=== PATIENT | female | born 1955 | race Caucasian/White ===

== ENCOUNTER 2016-06-21 09:34 | Day surgery (SDC) | payer OTHER ==
--- NOTE | ~2016-06-21 | EGD ---
EGD REPORT [facility] [address] [place] [address] NAME: ITZEL MAHER : [birth year] STATUS : REG [facility]#: [id number] AGE: 60 ADM/REG DATE : 06/21/16 MR#: [id number] REPORT SERV DATE: 06/21/16 DICTATED BY: NATALIE WARD DATE: 06/21/16 REPORT STATUS : Draft TRANSCRIBED BY: [employer] DATE: 06/21/16 [facility] Center Patient Name: Sis Maher Date of : 1955 Attending MD: NATALIE WARD, Procedure Date No Time: 06/21/2016 Procedure: Small bowel enteroscopy Indications: Abnormal abdominal CT Referring MD: Aquiles King Medicines: Monitored Anesthesia Care Complications: No immediate complications. Estimated blood loss: None. Procedure: Pre-Anesthesia Assessment: - ASA Grade Assessment: II - A patient with mild systemic disease. After obtaining informed consent, the endoscope was passed under direct vision. Throughout the procedure, the patient's blood pressure, pulse, and oxygen saturations were monitored continuously. The SIF Q180 [id number] was introduced through the mouth and advanced to the third part of duodenum. Due to the anatomy and excessive looping this was exchanged for a pediatic colonoscope. The PCF H190L [id number] was introduced through the mouth and advanced to the proximal jejunum. Findings: The esophagus was normal. The stomach was normal. The examined duodenum was normal. There was no evidence of significant pathology in the proximal jejunum and in the mid-jejunum. Biopsies were taken with a cold forceps for histology. Verification of patient identification for the specimen was done. Estimated blood loss was minimal. Impression: - Normal esophagus. - Normal stomach. - Normal examined duodenum. - The examined portion of the jejunum was normal. Biopsied. Recommendation: - Return to previous diet. - Continue present medications. - Perform a small bowel follow through. Procedure Code(s): --- Professional --- 46167, Small intestinal endoscopy, enteroscopy beyond EGD REPORT [facility] [address] [place]. [address] NAME: ITZEL MAHER : [birth year] STATUS : REG [facility] [place]#: [id number] AGE: 60 ADM/REG DATE : 06/21/16 MR#: [id number] REPORT SERV DATE: 06/21/16 DICTATED BY: NATALIE WARD DATE: 06/21/16 REPORT STATUS : Draft TRANSCRIBED BY: [employer] DATE: 06/21/16 second portion of duodenum, not including ileum; with biopsy, single or multiple Diagnosis Code(s): --- Professional --- R93.3, Abnormal findings on diagnostic imaging of other parts of digestive tract CPT copyright 2013 [employer]. All rights reserved. The codes documented in this report are preliminary and upon computed tomography technician review may be revised to meet current compliance requirements. NATALIE WARD, 06/21/2016 12:32 PM Number of Addenda: 0 Note Initiated On: 06/21/2016 11:45 AM Scope Withdrawal Time 0 hours 0 minutes 0 seconds [address] [place] [address]
--- NOTE | ~2016-06-21 | EGD ---
EGD REPORT [facility] [address] [place] [address] NAME: ITZEL MAHER : [birth year] STATUS : REG [facility]#: [id number] AGE: 60 ADM/REG DATE : 06/21/16 MR#: [id number] REPORT SERV DATE: 06/21/16 DICTATED BY: NATALIE WARD DATE: 06/21/16 REPORT STATUS : Draft TRANSCRIBED BY: [employer] DATE: 06/21/16 Endoscopy Center Patient Name: Sis Maher Date of : 1955 Attending MD: NATALIE WARD, Procedure Date No Time: 06/21/2016 Procedure: Colonoscopy Indications: Hematochezia Referring MD: Aquiles King Medicines: Monitored Anesthesia Care Complications: No immediate complications. Estimated blood loss: None. Procedure: Pre-Anesthesia Assessment: - ASA Grade Assessment: II - A patient with mild systemic disease. After I obtained informed consent, the scope was passed under direct vision. Throughout the procedure, the patient's blood pressure, pulse, and oxygen saturations were monitored continuously. The PCF H190L [id number] was introduced through the anus and advanced to the terminal ileum. The colonoscopy was performed without difficulty. The patient tolerated the procedure well. The quality of the bowel preparation was good. Findings: The perianal and digital rectal examinations were normal. The terminal ileum appeared normal. Many small-mouthed diverticula were found in the sigmoid colon and in the descending colon. Internal hemorrhoids were found, and they were Grade I (internal hemorrhoids that do not prolapse). The exam was otherwise without abnormality. Impression: - The examined portion of the ileum was normal. - Diverticulosis in the sigmoid colon and in the descending colon. - Internal hemorrhoids. - The examination was otherwise normal. Recommendation: - Patient has a contact number available for emergencies. The signs and symptoms of potential delayed complications were discussed with the patient. Return to normal activities tomorrow. Written discharge instructions were provided to the patient. - Return to previous diet. - Continue present medications. EGD REPORT [facility] [address] [place]. [address] NAME: ITZEL MAHER : [birth year] STATUS : REG [facility]#: [id number] AGE: 60 ADM/REG DATE : 06/21/16 MR#: [id number] REPORT SERV DATE: 06/21/16 DICTATED BY: NATALIE WARD DATE: 06/21/16 REPORT STATUS : Draft TRANSCRIBED BY: [employer] DATE: 06/21/16 - Repeat colonoscopy in 10 years for screening purposes. Procedure Code(s): --- Professional --- 32951, Colonoscopy, flexible, proximal to splenic flexure; diagnostic, with or without collection of specimen(s) by brushing or washing, with or without colon decompression (separate procedure) Diagnosis Code(s): --- Professional --- K64.0, First degree hemorrhoids K57.30, Diverticulosis of large intestine without perforation or abscess without bleeding K92.1, Melena CPT copyright 2013 [employer]. All rights reserved. The codes documented in this report are preliminary and upon stator winder review may be revised to meet current compliance requirements. NATALIE WARD, 06/21/2016 12:34 PM Number of Addenda: 0 Note Initiated On: 06/21/2016 11:37 AM Scope Withdrawal Time 0 hours 9 minutes 29 seconds [address] [place] [id number]
[~2016-06-21 09:34] MED LIST: ACETSUP325 PR; ASAB PO; CO Q-10100 MG PO; GARLIC PO; LUTEIN PO; METPAKSF PO; NAP250 PO; NEUR300 PO; NIACIN750 MG PO; NICORETTE ST2 MG PO; OS500+D PO; VITAMIN B-122500 MCG SL; VITAMIN D2000 UNIT PO; VITE PO; ZANTAC150 MG PO; ZINC PO; ZYRTEC ALLGY10 MG PO
== END 2016-06-21 23:59 | disposition home or self-care (01) ==
LOC: DMU 09:34
PROVIDERS: Internal Medicine Gastroenterology
PROC: 0DBA8ZX Excision of Jejunum, Via Natural or Artificial Opening Endoscopic, Diagnostic (ICD-10-PCS; principal; 2016-06-21 08:00)
PROC: 0DJD8ZZ Inspection of Lower Intestinal Tract, Via Natural or Artificial Opening Endoscopic (ICD-10-PCS; 2016-06-21 08:00)
DX: K64.0 First degree hemorrhoids (principal); K57.30 Diverticulosis of large intestine without perforation or abscess without bleeding; G43.909 Migraine, unspecified, not intractable, without status migrainosus; F41.9 Anxiety disorder, unspecified; F32.9 Major depressive disorder, single episode, unspecified; E03.9 Hypothyroidism, unspecified; R93.3 Abnormal findings on diagnostic imaging of other parts of digestive tract; Z88.0 Allergy status to penicillin; Z88.2 Allergy status to sulfonamides; Z98.890 Other specified postprocedural states
CPT/HCPCS: 88305; J2370